=== PATIENT | male | born 1975 | race Caucasian/White ===

== ENCOUNTER 2017-01-17 23:38 | Emergency (ER) | payer SELFPAY ==
[~2017-01-17] VITALS: Ht 177.8 cm; Wt 83.9 kg
[2017-01-17 23:50] VITALS: BP 160/91
--- NOTE | 2017-01-17 23:54 | ED GENERAL ADULT ---
History of Present Illness General Chief Complaint: General Adult Stated Complaint: SENT IN BY [facility] Source: patient Exam Limitations: no limitations Vital Signs & Intake/Output Vital Signs & Intake/Output Vital Signs Date Time Temp Pulse Resp B/P B/P Pulse O2 O2 Flow FiO2 Mean Ox Delivery Rate 01/17 2350 7.3 99 16 160/91 100 ED Intake and Output 01/18 0000 01/17 1200 Intake Total Output Total Balance Patient 185 lb Weight Allergies Coded Allergies: No Known Allergies (01/17/17) Triage Nurses Notes Reviewed? yes Onset: Gradual Duration: day(s): Injury Environment: home Severity: mild Modifying Factors: Improves With: rest. Associated Symptoms: "I just need to get to [facility]." HPI: 41 yo gentleman, walked out this evening, and came back. here for alcohol detox seeking admission to [facility] in the morning. Past History Travel History Traveled to [facility] past 21 day No Medical History Any Pertinent Medical History? see below for history Neurological: NONE EENT: NONE Cardiovascular: NONE Respiratory: NONE Gastrointestinal: PANCREATITIS Hepatic: NONE Renal: NONE Musculoskeletal: NONE Psychiatric: alcohol dependence Endocrine: NONE Blood Disorders: NONE Cancer(s): NONE Surgical History Surgical History: non-contributory Psychosocial History What is your primary language Sammarinese Family History Hx Contributory? No Review of Systems Review of Systems Constitutional: Reports: no symptoms. EENTM: Reports: no symptoms. Respiratory: Reports: no symptoms. Cardiovascular: Reports: no symptoms. GI: Reports: no symptoms. Genitourinary: Reports: no symptoms. Musculoskeletal: Reports: no symptoms. Skin: Reports: no symptoms. Neurological/Psychological: Reports: no symptoms. Hematologic/Endocrine: Reports: no symptoms. Immunologic/Allergic: Reports: no symptoms. All Other Systems: Reviewed and Negative Physical Exam Physical Exam General Appearance: well developed/nourished, no apparent distress Head: atraumatic, normal appearance Eyes: Bilateral: normal appearance. Ears, Nose, Throat: normal pharynx, normal ENT inspection, hearing grossly normal Neck: normal inspection, supple, full range of motion Respiratory: normal breath sounds, chest non-tender, no respiratory distress, quiet respiration Cardiovascular: regular rate/rhythm Gastrointestinal: normal bowel sounds, soft, non-tender, no organomegaly Back: normal inspection, normal range of motion Extremities: normal inspection, normal capillary refill, normal range of motion Neurologic/Psych: no motor/sensory deficits, awake, alert, oriented x 3 Skin: intact, normal color Core Measures ACS in differential dx? No CVA/TIA Diagnosis: No Severe Sepsis Present: No Septic Shock Present: No Progress Differential Diagnoses I considered the following diagnoses in my evaluation of the patient: alcoholism vs other. Plan of Care: Orders Procedure Date/time Status Pathway - chart 01/18 55 Active CIWA 01/18 55 Active Current Medications Sig/Brad Start time Last Medication Dose Stop Time Status Admin Lorazepam 2 MG ONCE ONE 01/18 100 CAN (Ativan) 01/18 010 Laboratory Tests 01/17/17 2355: Lipase Cancelled 01/17/17 235: Serum Alcohol Cancelled 01/17/17 235: CBC w Diff Cancelled, WBC Cancelled, RBC Cancelled, Hgb Cancelled, Hct Cancelled , MCV Cancelled, MCH Cancelled, RDW Cancelled, Plt Count Cancelled, MPV Cancelled, PUBS MCHC Cancelled, Methadone Screen Cancelled, Barbiturate Screen Cancelled, Ur Phencyclidine Scrn Cancelled, Amphetamines Screen Cancelled, U Benzodiazepines Scrn Cancelled, Urine Cocaine Screen Cancelled, Urine Cannabis Screen Cancelled Initial ED EKG: none Departure Departure Disposition: HOME OR SELF CARE Condition: Stable Clinical Impression Primary Impression: Alcoholism Referrals: PATIENT HAS NO PRIMARY CARE DR (PCP/Family) Departure Forms: Customer Survey General Discharge Information Comments pt stated that he does not wish to stay and sleep in the [address].... pt denies SI/HI/hallucinations. He breathylized zero. He is safe for discharge with close follow up. Critical Care Note Critical Care Note Critical Care Time: non-applicable
== END 2017-01-18 01:36 ==
LOC: ERH 23:38
DX: F10.20 Alcohol dependence, uncomplicated (principal)
CPT/HCPCS: 80307; G0480

== ENCOUNTER 2017-07-23 17:59 | Emergency (ER) | payer SELFPAY | END 2017-07-23 19:21 | disposition admitted as inpatient to this hospital (09) | LOC: ERH 17:59 | DX: F10.129 Alcohol abuse with intoxication, unspecified (principal); F11.129 Opioid abuse with intoxication, unspecified ==